=== PATIENT | male | born 1965 | race Hispanic/Latino ===

== ENCOUNTER 2018-02-02 18:58 | Emergency (ER) | payer OTHER ==
[2018-02-02 19:13] VITALS: BMI 25.8
--- NOTE | 2018-02-02 19:14 | C.PDOC ---
History Of Present Illness 52 year old male is brought to the ED by EMS for evaluation after he was found publicly intoxicated [facility] prior to arrival. Patient admits to drinking earlier today. Upon ED arrival, patient is coherent and incessantly vocal with ED staff. Review of patient's prior records show that he has had several intoxication-related ED visits since 2010. Patient denies any acute injuries and has no other complaints at this time. Time Seen by Provider: 02/02/18 19:10 Chief Complaint (Nursing): Substance Abuse History Per: Patient History/Exam Limitations: intoxication Onset/Duration Of Symptoms: Hrs Current Symptoms Are (Timing): Still Present Suicide/Self Injury Attempted (Context): None Modifying Factor(s): Alcohol Associated Symptoms: denies: Suicidal Thoughts, Suicidal Plan Involuntary Hold By: None Recent travel outside of the [place]: No Additional History Per: Patient Past Medical History Reviewed: Historical Data, Nursing Documentation, Vital Signs Vital Signs: Last Vital Signs Temp 98.2 F 02/02/18 19:10 Pulse 98 H 02/02/18 19:10 Resp 18 02/02/18 19:10 BP 156/85 H 02/02/18 19:10 Pulse Ox 95 02/02/18 19:52 - Medical History PMH: Diabetes, HTN Denies: Hepatitis, HIV, Seizures, Sexually Transmitted Disease Surgical History: No Surg Hx - [facility] Procedures ALCOHOL DETOXIFICATION (11/19/13) COMBINED ALCOHOL AND DRUG DETOXIFICATION (03/28/07) NONEXCIS DEBRID OF WOUND, INFECT, OR BURN (01/23/99) PSYCHIAT DRUG THERAP NEC (12/06/02) SKIN SUTURE NEC (01/23/99) Family History: States: Unknown Family Hx - Social History Hx Tobacco Use: Yes Hx Alcohol Use: Yes Hx Substance Use: No - Immunization History Hx Tetanus Toxoid Vaccination: No Hx Influenza Vaccination: No Hx Pneumococcal Vaccination: No Review Of Systems Psych: Positive for: Other (alcohol intoxication ). Negative for: Suicidal ideation Physical Exam - Physical Exam Appears: Non-toxic, No Acute Distress, Other (visibly intoxicated) Skin: Normal Color, Warm, Dry Head: Atraumatic, Normacephalic Eye(s): bilateral: Normal Inspection Oral Mucosa: Moist, Other (alcohol on breath ) Neck: Supple Chest: Symmetrical, No Deformity, No Tenderness Cardiovascular: Rhythm Regular, No Murmur Respiratory: Normal Breath Sounds, No Rales, No Rhonchi, No Wheezing Extremity: Normal ROM, Capillary Refill (less than 2 seconds ) Neurological/Psych: Other (awake, alert, arousable to touch and verbal stimuli ) ED Course And Treatment O2 Sat by Pulse Oximetry: 95 (on RA) Pulse Ox Interpretation: Normal Medical Decision Making Medical Decision Making: alcohol abuse, since 2010 declines detox Disposition Doctor Will See Patient In The: Office Counseled Patient/Family Regarding: Studies Performed, Diagnosis - Disposition Referrals: Alcoholics Anonymous [Outside] [facility] [Outside] [facility] [Outside] [facility] [Outside] Disposition: HOME/ ROUTINE Disposition Time: 19:12 Condition: GOOD Additional Instructions: seek outpatient resources seek nightly senior living placement. seek AA Instructions: Alcohol Abuse and Alcoholism (DC) Forms: [facility] ([place]) - Clinical Impression Clinical Impression: Alcohol abuse - Scribe Statement The provider has reviewed the documentation as recorded by the Scribe (Samia Bunn) Provider Attestation: All medical record entries made by the Scribe were at my direction and personally dictated by me. I have reviewed the chart and agree that the record accurately reflects my personal performance of the history, physical exam, medical decision making, and the department course for this patient. I have also personally directed, reviewed, and agree with the discharge instructions and disposition.
[2018-02-02 19:18] VITALS: BP 156/85; PULSE 98; RESP 18; TEMP 98.2; O2SAT 95
== END 2018-02-02 19:46 | disposition home or self-care (01) ==
LOC: C.ER 18:58
DX: F10.129 Alcohol abuse with intoxication, unspecified (principal); Y90.9 Presence of alcohol in blood, level not specified

== ENCOUNTER 2018-02-03 16:00 | Emergency (ER) | payer OTHER ==
[2018-02-03 16:01] VITALS: BMI 25.8
[2018-02-03 16:18] VITALS: BP 139/90; PULSE 103; RESP 18; TEMP 99.4; O2SAT 96
--- NOTE | 2018-02-03 16:50 | C.PDOC ---
History Of Present Illness 52 year old male is brought to the ED by EMS for evaluation of alcohol intoxication for an unknown duration. Patient is familiar to this ED and has had previous evaluations for similar complaints. He admits to drinking earlier today and has no complaints at this time. Time Seen by Provider: 02/03/18 16:08 Chief Complaint (Nursing): Substance Abuse History Per: Patient, EMS History/Exam Limitations: intoxication Onset/Duration Of Symptoms: Hrs Current Symptoms Are (Timing): Still Present Suicide/Self Injury Attempted (Context): None Modifying Factor(s): Alcohol Associated Symptoms: denies: Suicidal Thoughts, Suicidal Plan Involuntary Hold By: None Recent travel outside of the [place]: No Additional History Per: Patient, EMS Past Medical History Reviewed: Historical Data, Nursing Documentation, Vital Signs Vital Signs: Last Vital Signs Temp 99.4 F 02/03/18 16:16 Pulse 103 H 02/03/18 16:16 Resp 18 02/03/18 16:16 BP 139/90 02/03/18 16:16 Pulse Ox 96 02/05/18 17:34 - Medical History PMH: Diabetes, HTN Denies: Hepatitis, HIV, Seizures, Sexually Transmitted Disease Surgical History: No Surg Hx - [facility] Procedures ALCOHOL DETOXIFICATION (11/19/13) COMBINED ALCOHOL AND DRUG DETOXIFICATION (03/28/07) NONEXCIS DEBRID OF WOUND, INFECT, OR BURN (01/23/99) PSYCHIAT DRUG THERAP NEC (12/06/02) SKIN SUTURE NEC (01/23/99) Family History: States: Unknown Family Hx - Social History Hx Tobacco Use: Yes Hx Alcohol Use: Yes Hx Substance Use: No - Immunization History Hx Tetanus Toxoid Vaccination: No Hx Influenza Vaccination: No Hx Pneumococcal Vaccination: No Review Of Systems Psych: Positive for: Other (alcohol intoxication ) Physical Exam - Physical Exam Appears: Non-toxic, No Acute Distress, Other (visibly intoxicated ) Skin: Normal Color, Warm, Dry Head: Atraumatic, Normacephalic Eye(s): bilateral: Normal Inspection Oral Mucosa: Moist, Other (alcohol on breath ) Neck: Supple Chest: Symmetrical, No Deformity, No Tenderness Cardiovascular: Rhythm Regular, No Murmur Respiratory: Normal Breath Sounds, No Rales, No Rhonchi, No Wheezing Extremity: Normal ROM, Capillary Refill (less than 2 seconds ) Neurological/Psych: Other (arousable to touch and verbal stimuli ) ED Course And Treatment O2 Sat by Pulse Oximetry: 96 (on RA) Pulse Ox Interpretation: Normal Medical Decision Making Medical Decision Making: assessment: alcohol intoxication Progress: On re-examination, patient is resting comfortably, showing no signs of distress and is ambulatory in the ED with a steady gait. Patient is stable for discharge. Disposition - Disposition Disposition: HOME/ ROUTINE Disposition Time: 19:00 Condition: STABLE Additional Instructions: follow up with your doctor in 2 days call to make an appointment decrease alcohol use return to ER if symptoms worsens or progress Instructions: Alcohol Abuse and Alcoholism (DC) Forms: General Discharge Instructions, [facility] ([place]) - Clinical Impression Clinical Impression: Alcohol intoxication - Scribe Statement The provider has reviewed the documentation as recorded by the Scribe (Samia Bunn) Provider Attestation: All medical record entries made by the Scribe were at my direction and personally dictated by me. I have reviewed the chart and agree that the record accurately reflects my personal performance of the history, physical exam, medical decision making, and the department course for this patient. I have also personally directed, reviewed, and agree with the discharge instructions and disposition.
== END 2018-02-03 17:40 | disposition home or self-care (01) ==
LOC: C.ER 16:00
DX: F10.129 Alcohol abuse with intoxication, unspecified (principal); E11.9 Type 2 diabetes mellitus without complications; I10 Essential (primary) hypertension; Z72.0 Tobacco use